=== PATIENT | male | born 1990 | race Hispanic/Latino ===

== ENCOUNTER 2018-11-28 22:14 | Emergency (ER) | payer SELFPAY ==
[~2018-11-28] VITALS: Ht 167.6 cm; Wt 93.9 kg
[2018-11-28] MEDS ORDERED: SODIUM CHLORIDE 0.9% 1000ML 1,000 ML IV STA (22:36)
[2018-11-28] MEDS ORDERED: ONDANSETRON HCL INJ 2MG/ML 2ML 2 MG/ML VIAL IV ONE (22:45)
[2018-11-28] MEDS ORDERED: KETOROLAC TROMETHAMINE 30 MG/ML VIAL IV ONE (22:45)
[2018-11-28 23:11] LABS: BASOPHILS % 0.2 % (0.0-1.0); EOSINOPHILS % 0.2 % (0.0-6.0); HEMATOCRIT 48.1 % (38.2-49.6); HEMOGLOBIN 16.2 g/dL (14.0-18.0); LYMPHOCYTES # (AUTO) 1.6 (1.0-3.2); LYMPHOCYTES % 8.5 % (18.0-39.1); MEAN CORPUSCULAR HEMOGLOBIN 30.7 pg (28-32); MEAN CORPUSCULAR HGB CONC 33.7 g/dL (31-35); MEAN CORPUSCULAR VOLUME 91.3 fL (81-99); MONOCYTES # (AUTO) 0.8 (0.2-0.8); MONOCYTES % 4.3 % (4.4-11.3); NEUTROPHILS # (AUTO) 15.6 (2.1-6.9); NEUTROPHILS % 86.1 % (38.7-80.0); PLATELET COUNT 344 x10e3/uL (140-360); RED BLOOD COUNT 5.27 x10e6/uL (4.3-5.7); RED CELL DISTRIBUTION WIDTH 13.4 % (11.7-14.4)
[2018-11-28 23:35] LABS: ALANINE AMINOTRANSFERASE 33 IU/L (0-55); ALBUMIN 4.6 g/dL (3.5-5.0); ALBUMIN/GLOBULIN RATIO 1.5 (0.8-2.0); ALKALINE PHOSPHATASE 61 IU/L (40-150); ANION GAP 15.8 mmol/L (8-16); BLOOD UREA NITROGEN 11 mg/dL (7-26); BUN/CREATININE RATIO 8 (6-25); CALCIUM 9.6 mg/dL (8.4-10.2); CARBON DIOXIDE 25 mmol/L (22-29); CHLORIDE 102 mmol/L (98-107); CREATININE, SERUM 1.37 mg/dL (0.72-1.25); EST GLOMERULAR FILTRATION RATE > 60 ML/MIN (60-); GLUCOSE 122 mg/dL (74-118); POTASSIUM 3.8 mmol/L (3.5-5.1); SODIUM 139 mmol/L (136-145)
[2018-11-29] MEDS ORDERED: SODIUM CHLORIDE 0.9% 50ML 50 ML ONE (00:39)
[2018-11-29] MEDS ORDERED: IOPAMIDOL 370 MG/ML 200 ML INFUS..BTL INJ ONE (00:39)
--- NOTE | 2018-11-29 00:41 | Diagnostic Imaging Report ---
ADDENDUM #1 IMPRESSION should read: Large complex right hydrocele, in the absence of hyperemia, favors hematocele however "pyocele is" also consideration. Updated report confirmed with ER provider Dr. Fu at 1:58 AM on 11/29/[address] Yanez via telephone. Signed by: Itz Yanez DO on 11/29/2018 1:59 AM ORIGINAL REPORT EXAM: Scrotal Ultrasound with Duplex INDICATION: Left testicle pain COMPARISON: None TECHNIQUE: Transverse and longitudinal images were obtained of the scrotum with grayscale imaging, color Doppler and spectral waveform analysis. FINDINGS: Right testis: Size: 3.3 x 2.7 x 3.1 cm, normal in size. Echogenicity: Normal Mass/Cysts: None Left testis: Size: 4.4 x 2.3 x 2.4 cm, normal in size. Echogenicity: Normal Mass/Cysts: None Epididymis: Appearance: Right epididymis not visualized. Left epididymis normal in size without increased vascularity. Mass/Cysts: None Extratesticular: Masses: None Hydrocele: Large complex right hydrocele with mobile low level echogenic fluid. No septations. No solid components. Varicocele: Left varicocele. Doppler: Normal arterial flow to both testes and symmetrical flow on color Doppler evaluation is seen. No evidence of testicular torsion. IMPRESSION: 1. No evidence of testicular torsion. 2. Large complex right hydrocele, in the absence of hyperemia, favors hematocele however biopsy was also consideration. Signed by: Itz Yanez DO on 11/29/2018 12:38 AM
[2018-11-29] MEDS ORDERED: CEFTRIAXONE SOD 1 GM VIAL IV ONE (01:30)
--- NOTE | 2018-11-29 02:07 | Diagnostic Imaging Report ---
EXAM: CT Abdomen and Pelvis WITH contrast INDICATION: Right testicular pain and swelling COMPARISON: Testicular ultrasound 11/28/2018. TECHNIQUE: Abdomen and pelvis were scanned utilizing a multidetector helical scanner from the lung base to the pubic symphysis after administration of IV contrast. Coronal and sagittal reformations were obtained. Routine protocol was performed. Scan was performed when during portal venous phase. IV CONTRAST: 100 mL of Isovue 370 ORAL CONTRAST: None COMPLICATIONS: None RADIATION DOSE: Total DLP: 716 mGy*cm Estimated effective dose: (DLP x 0.015 x size factor) mSv CTDIvol has been reviewed. It is below the limits set by the Radiation Protocol Committee (RPC). Dose modulation, iterative reconstruction, and/or weight based adjustment of the mA/kV was utilized to reduce the radiation dose to as low as reasonably achievable. FINDINGS: LINES and TUBES: None. LOWER THORAX: Punctate metallic density at the cardiac apex. HEPATOBILIARY: No focal hepatic lesions. No biliary ductal dilation. GALLBLADDER: No radio-opaque stones or sludge. No wall thickening. SPLEEN: No splenomegaly. PANCREAS: No focal masses or ductal dilatation. ADRENALS: No adrenal nodules KIDNEYS/URETERS: Kidneys enhance symmetrically. No hydronephrosis. Small left renal simple cyst. No solid mass lesions. No stones. GI TRACT: No abnormal distention, wall thickening, or evidence of bowel obstruction. Appendix is normal. PELVIC ORGANS/BLADDER: A 12.2 x 8 x 7.2 cm homogeneous fluid dense right hydrocele with overlying scrotal wall thickening. LYMPH NODES: No lymphadenopathy. VESSELS: Unremarkable. PERITONEUM / RETROPERITONEUM: No free air or fluid. BONES: Bilateral L5 inferior pars defects.. SOFT TISSUES: Unremarkable. IMPRESSION: Large right hydrocele, appeared complex on testicular ultrasound on 11/28/2018, with overlying scrotal wall thickening, considerations include hematocele or pyocele. Signed by: Itz Yanez DO on 11/29/2018 2:04 AM
[2018-11-29] MEDS ORDERED: TRAMADOL HCL 50 MG TAB PO ONE (02:45)
== END 2018-11-29 03:02 | disposition home or self-care (01) ==
LOC: ER 22:14
DX: N50.812 Left testicular pain (principal); N45.1 Epididymitis; N45.2 Orchitis; N43.3 Hydrocele, unspecified; I86.1 Scrotal varices
CPT/HCPCS: 36415; 74177; 76870; 80053; 85025; 93976; 96374; 96375; 99283; J0696; J1885; J2405; J7030; Q9967